=== PATIENT | male | born 1950 | race Caucasian/White ===

== ENCOUNTER → 2019-06-23 14:30 | Outpatient (CLI) | payer MEDICARE, SELFPAY ==
--- NOTE | 2019-06-23 | ECG_ITS ---
APPROVED REPORT Exam: Resting ECG HR:57 bpm ECG Measurements Heart Rate 57 AXES AR 146 P 79 QRSd 82 QRS 24 QT 434 T 30 QTc 422 <Conclusion> Sinus bradycardia late r wave progression Abnormal ECG Electronically signed by : Nabil Gibbs, 06/24/2019 17:55:24
[2019-06-23 14:36] LABS: Microscopic, Urine URINE MICROSCOPIC (MICROSCOPIC)
[2019-06-23 14:58] LABS: Appearance,Urine CLEAR (Clear); Bilirubin,Urine Negative (Negative); Blood, Urine Negative (Negative); Color,Urine YELLOW (Yellow); Glucose,Urine (UA) Negative (Negative); Ketones,Urine Negative (Negative); Leukocyte Esterase,Urine Negative (Negative); Nitrate,Urine Negative (Negative); Protein,Urine Negative (Negative); Specific Gravity, Urine >= 1.030 (1.005-1.030); Urobilinogen,Urine 0.2 EU/dl (0.2)
[2019-06-23 14:59] LABS: Basophils % 0.5 % (0.1-2.0); Eosinophils # 0.2 K/mm3 (0.0-0.4); Eosinophils % 2.3 % (0.1-12.0); Hematocrit 44.7 % (42.0-52.0); Hemoglobin 15.3 g/dL (14.1-18.0); Lymphocytes # 1.9 K/mm3 (0.7-4.5); Mean Corpuscular HGB Conc 34.2 g/dL (31.8-35.4); Mean Corpuscular Hemoglobin 30.9 pg (27.0-31.2); Mean Corpuscular Volume 90.5 fl (80-94); Mean Platelet Volume 10.1 fl (7.4-10.4); Monocytes # 0.5 K/mm3 (0.1-1.0); Monocytes % 6.7 % (1.7-9.3); Neutrophils # 4.2 K/mm3 (1.8-7.8); Neutrophils % 62.5 % (37.0-80.0); Platelet Count 167 K/mm3 (142-424); Red Blood Count 4.94 M/mm3 (4.60-6.20); Red Cell Distribution Width 13.2 % (11.5-17.5); White Blood Count 6.7 K/mm3 (4.8-10.8)
[2019-06-23 15:24] LABS: WBC,Urine Occasional #/hpf (0-3)
[2019-06-23 15:28] LABS: Hemoglobin A1C 5.7 % (4.0-6.0)
[2019-06-23 16:25] LABS: Alanine Aminotransferase 17 U/L (12-78); Albumin Level 4.2 g/dl (3.5-5.0); Albumin/Globulin Ratio 1.8 (1.1-1.8); Alkaline Phosphatase 54 U/L (38-126); Anion Gap 9.9 mEq/L (5-15); Aspartate Amino Transferase 25 U/L (17-59); Bilirubin,Total 0.6 mg/dl (0.2-1.3); Blood Urea Nitrogen 22 mg/dl (9-20); Calcium 9.9 mg/dl (8.4-10.2); Carbon Dioxide 28 mmol/L (22.0-30.0); Chloride 103 mmol/L (98-107); Chol/HDL Ratio 4.5 (1-3.5); Cholesterol 224 mg/dl (140-200); Estimated Glomerular Filt Rate 111 ml/min (>60); GFR (African American) 135 ML/MIN (>60); Globulin 2.4 g/dL (1.3-3.2); Glucose 88 mg/dl (74-100); HDL Cholesterol 50 mg/dl (40-60); Potassium 4.9 mmoL/L (3.5-5.1); Sodium 136 mmol/L (136-145); Total Protein,Serum 6.6 g/dl (6.3-8.2); Triglycerides 140 mg/dl (30-150); Uric Acid 4.6 mg/dl (3.5-8.5); VLDL Cholesterol 28 mg/dL (0-40)
[2019-06-23 16:36] LABS: Direct LDL Cholesterol 167.19 mg/dL (100-129)
[2019-06-23 16:55] LABS: Thyroid Stimulating Hormone 3.28 uIU/mL (0.465-4.68)
== END ==
PROVIDERS: Visit Provider Family Medicine
DX: R07.9 Chest pain, unspecified (principal); R73.01 Impaired fasting glucose; E78.00 Pure hypercholesterolemia, unspecified; I10 Essential (primary) hypertension
CPT/HCPCS: 36415; 80053; 80061; 81001; 83036; 84443; 84550; 85025; 93005

== ENCOUNTER → 2019-06-29 09:45 | Outpatient (CLI) | payer MEDICARE, SELFPAY ==
--- NOTE | 2019-06-29 09:30 | CA_ITS ---
APPROVED REPORT Exam: Exercise Treadmill Technologist: Paula Rosas, Ht: 5 ft 7 in Wt: 165 lbs BSA: 1.86 m2 Indications: CP Medical History Medical History: HTN, Hyperlipidemia Cardiac Risk Factors: HTN, Hyperlipidemia, FHX of CAD Stress Test Details Test: Rohit HR Resting HR: 69 bpm Max Heart Rate (APMHR): 150 bpm Max HR Achieved: 127 bpm Target HR (85% APMHR): 127 bpm % of APMHR: 84 BP Resting BP: 140/74 mmHg Max BP: 206/80 mmHg ECG Clinical Exercise duration: 07:41 min Highest Stage Achieved: Exercise capacity: 10.1 METs Stress ECG Conclusion Markedly agn GXT ischemic EKG changes with CP with exercise, GXT only no imaging. Abnormal exercise treadmill stress test. Test Summary RECOVERY 09:00 0.0 0.0 80 . 152/ 92 . . REST 03:51 0.0 0.0 69 . 140/ 74 . . Stage 1 01:00 10.0 1.7 0 . . . . Stage 1 02:00 10.0 1.7 90 . . . . Stage 1 03:00 10.0 1.7 91 . 166/ 70 . . Stage 2 01:00 12.0 2.5 104 . . . . Stage 2 02:00 12.0 2.5 105 . . . . Stage 2 03:00 12.0 2.5 106 . . . . Stage 3 01:00 14.0 3.4 120 . . . . Stage 3 01:41 14.0 3.4 123 . . . Stop exercise at 07:41 RECOVERY 01:00 0.0 0.0 99 . . . . RECOVERY 02:00 0.0 0.0 80 . 200/ 80 . . RECOVERY 03:00 0.0 0.0 79 . 206/ 80 . . RECOVERY 04:00 0.0 0.0 74 . 206/ 80 . . RECOVERY 05:00 0.0 0.0 73 . 151/ 81 . . RECOVERY 06:00 0.0 0.0 70 . 156/ 80 . . RECOVERY 07:00 0.0 0.0 76 . 156/ 80 . . RECOVERY 08:00 0.0 0.0 77 . 152/ 92 . . RECOVERY 09:00 0.0 0.0 80 . 152/ 92 . . RECOVERY 10:00 0.0 0.0 79 . 152/ 92 . . RECOVERY 11:00 0.0 0.0 74 . 152/ 92 . . RECOVERY 11:27 0.0 0.0 75 . 152/ 92 . . Electronically signed by : Ramirez Huertas, 06/29/2019 15:37:08
--- NOTE | 2019-06-29 12:22 | CA_ITS ---
APPROVED REPORT EXAM: Comprehensive 2D, Doppler, and color-flow Echocardiogram Print Producer: Antoinette Daly RDCS Ht: 5 ft 8 in Wt: 164lbs BSA: 1.88 BP: 153/79 mmHg Indications: ABN GXT,SOA,CP,HTN 2D Dimensions LVOT 1.89 cm (M/F) 1.5-2.5 M-Mode Dimensions RVDd 2.65 cm (0.9-2.6) LVDd 5.01 cm (3.5-5.7) LVDs 3.33 cm (3.5-5.7) IVSd 1.04 cm (0.6-1.1) PWd 1.00 cm (0.6-1.1) EF (Teich) 62.00% FS 33.50% EDV (Teich) 118.80 mL ESV (Teich) 45.10 mL LV Diastology E/A Ratio 0.68 Mitral Valve MV A Velocity 70.00 (40-130 cm/s) Left Ventricle Left atrium is mildly enlarged, left ventricle is normal size, mild concentric left ventricular hypertrophy, visually estimated ejection fraction 55% with mild inferior basal wall hypokinesis. Grade 1 diastolic dysfunction seen without tissue Doppler evidence of raise left atrial pressure. Right Ventricle Right atrium and right ventricular normal size and contractility. Aortic Valve Aortic valve is thickened and calcified leaflet continue to display good mobility, there is no aortic stenosis or aortic insufficiency. Mitral Valve Mitral valve is grossly normal, there is mild mitral regurgitation. Tricuspid Valve Tricuspid valve is grossly normal, there is mild tricuspid regurgitation, calculated right ventricular systolic pressure is 48 mmHg which is moderately elevated. Pulmonic Valve Pulmonic valve is poorly visualized. Great Vessels Aortic root is normal size. Pericardium No significant pericardial effusion noted. Conclusion 1. Mildly enlarged left atrium, normal left ventricular size, mild concentric left ventricular hypertrophy, visually estimated ejection fraction 55% with no regional wall motion abnormality, grade 1 diastolic dysfunction seen without tissue Doppler evidence of raise left atrial pressure. 2. Mild mitral and tricuspid regurgitation, calculated right ventricular systolic pressure is 48 mmHg, inferior vena cava is normal size with normal inspiratory collapse 3. No significant pericardial effusion noted. Electronically signed by : Ramirez Huertas, 06/30/2019 11:38:50
== END ==
PROVIDERS: PCP Family Medicine; Visit Provider Internal Medicine
DX: R06.00 Dyspnea, unspecified (principal); R07.9 Chest pain, unspecified; R94.39 Abnormal result of other cardiovascular function study; I10 Essential (primary) hypertension; Z72.0 Tobacco use
CPT/HCPCS: 93017; 93306

== ENCOUNTER 2019-12-05 22:05 | Inpatient (IN) | payer MEDICARE, SELFPAY ==
[2019-12-05 22:30] VITALS: BP 92/61; PULSE 74; RESP 17; O2SAT 98
[2019-12-05 22:44] VITALS: BP 101/64; PULSE 73; RESP 15; TEMP 36.6; O2SAT 98; BMI 25.0
[2019-12-05 22:47] LABS: POC Glucose,Bedside 143 (70-110)
--- NOTE | 2019-12-05 22:56 | ECG_ITS ---
APPROVED REPORT Exam: Resting ECG HR:69 bpm ECG Measurements Heart Rate 69 AXES LA 128 P 14 QRSd 90 QRS -6 QT 392 T 87 QTc 420 <Conclusion> Normal sinus rhythm Nonspecific ST and T wave abnormality Abnormal ECG Electronically signed by : Meek Webster, 12/06/2019 11:57:28
--- NOTE | 2019-12-05 22:56 | XR_ITS ---
PROCEDURE: XR CHEST 2V CLINICAL HISTORY: SOB Shortness of breath, heart disease COMPARISON: No exams were available for comparison FINDINGS: Prior median sternotomy. Normal heart size. No mediastinal or hilar mass apparent. The lungs are clear without infiltrates, suspicious nodules, or pleural effusions. There are degenerative changes of the thoracic spine. IMPRESSION: No acute findings. Dictated by: Amaury Mayorga MD 12/06/2019 06:40 Amaury Mayorga MD in [place] 12/06/2019 06:40
[2019-12-05 23:00] VITALS: BP 104/70; PULSE 75; RESP 17; O2SAT 98
--- NOTE | 2019-12-05 23:00 | HMH.EDGENADL ---
ED Disposition Clinical Impression: MAURILIO (acute kidney injury) Disposition: Admitted As Inpatient Condition on Discharge: Fair - Critical Care Critical Care Time: No Attestation: On 12/05/19, the high probability of a clinically significant, sudden or life threatening deterioration of the following system(s) required my full and direct attention, intervention and personal management. The time I documented below is in addition to time spent performing reported procedures but includes the following listed in this critical care notation. Medical Decision Making - Rogelio Inquiry Pt receiving controlled substance: No Vital Signs: 12/05/19 22:30 12/05/19 22:44 12/05/19 23:00 Temperature 97.9 F Temperature Source Oral Pulse Rate [Right] 74 73 75 Respiratory Rate 17 15 17 Blood Pressure [Left Arm] 92/61 L 101/64 L 104/70 L Blood Pressure Mean [Left Arm] 71 76 81 Blood Pressure Source [Left Arm] Automatic Cuff Automatic Cuff Automatic Cuff Blood Pressure Position [Left Arm] Supine Supine Supine 02 Sat by Pulse Oximetry 98 98 98 Oxygen Delivery Method Room Air Room Air Room Air 12/05/19 23:30 12/06/19 00:00 Temperature Temperature Source Pulse Rate [Right] 74 68 Respiratory Rate 18 17 Blood Pressure [Left Arm] 102/71 L 135/76 Blood Pressure Mean [Left Arm] 81 95 Blood Pressure Source [Left Arm] Automatic Cuff Automatic Cuff Blood Pressure Position [Left Arm] Supine Supine 02 Sat by Pulse Oximetry 99 100 Oxygen Delivery Method Room Air Room Air - Lab Data Lab Results 12/05/19 20:53: WBC 11.6 H, RBC 5.03, Hgb 15.7, Hct 44.0, MCV 87.4, MCH 31.2, MCHC 35.6 H, RDW 14.5, Plt Count 282, MPV 9.8, Neut % (Auto) 75.6, Lymph % (Auto) 15.8, [place] % (Auto) 8.0, Eos % (Auto) 0.3, Baso % (Auto) 0.2, Neut # (Auto) 8.8 H, Lymph # (Auto) 1.8, [place] # (Auto) 0.9, Eos # (Auto) 0.0, Baso # (Auto) 0.0 12/05/19 20:53: Sodium 134 L, Potassium 3.8, Chloride 104, Carbon Dioxide 12 L, Anion Gap 21.8 H, BUN 114 H*, Creatinine 3.20 H, Estimated Creat Clear 23, Estimated GFR 19 L*, Est GFR ( Amer) 23 L, Glucose 153 H, Calcium 9.0, Total Bilirubin 1.4 H, AST 23, ALT 13, Alkaline Phosphatase 61, Troponin I < 0.01, Total Protein 6.7, Albumin 3.8, Globulin 2.9, Albumin/Globulin Ratio 1.3 12/05/19 22:26: POC Glucose 143 H Result diagrams: 12/05/19 20:53 12/05/19 20:53 Orders (Tests/Meds): ED MEDICATIONS Generic Name Dose Route Start Last Admin Trade Name Freq PRN Reason Stop Dose Admin Lactated Ringer's 1,000 mls @ 999 mls/hr 12/05/19 23:00 12/05/19 23:10 Lactated Ringer's 1000 Ml Bag IV 12/06/19 00:00 999 mls/hr .Q1H1M ARIC Administration ORDERS Category Date Time Status XR chest 2V Stat Exams 12/05/19 22:56 Taken Covid-19 IgG/IgM (HM) Stat Lab 12/05/19 22:34 Received Troponin I Q3H Lab 12/06/19 02:00 Ordered Troponin I Q3H Lab 12/06/19 05:00 Ordered Troponin I Stat Lab 12/05/19 06:34 Ordered ECG Request by /Angie Stat Y 12/05/19 22:56 Ordered Medical Decision Narrative: 69-year-old male who comes in for evaluation of possible syncopal episode along with concern for hypoglycemia. Fingerstick blood glucose of 135 on arrival. Hemodynamically stable, but borderline hypotensive on arrival with systolic of around 105. Awake alert and oriented x4. Differential diagnosis includes but is not limited to viral gastroenteritis, C. difficile, bacterial gastroenteritis, dehydration causing syncope, arrhythmia causing syncope, myocardial infarction. Labs obtained including CBC, CMP, troponin profile. Labs significant for MAURILIO with creatinine of 3.4 and elevated BUN of 114. Labs also showed hyponatremia with sodium of 134. Provided patient with bolus of lactated Ringer's. Troponins negative. EKG personally reviewed and negative for evidence of ST elevation, ST depression, or T wave maladies concerning for ACS. Admitted patient to internal medicine service for further treatment. General Adult HPI
[2019-12-05 23:05] LABS: Chloride 104 mmol/L (98-107)
[2019-12-05 23:06] LABS: Potassium 3.8 mmoL/L (3.5-5.1); Sodium 134 mmol/L (136-145)
[2019-12-05 23:08] LABS: Alanine Aminotransferase 13 U/L (12-78); Aspartate Amino Transferase 23 U/L (17-59); Creatinine Clearance Estimated 23 mL/min (50-200); Estimated Glomerular Filt Rate 19 ml/min (>60); GFR (African American) 23 ML/MIN (>60)
[2019-12-05 23:09] LABS: Albumin Level 3.8 g/dl (3.5-5.0); Albumin/Globulin Ratio 1.3 (1.1-1.8); Alkaline Phosphatase 61 U/L (38-126); Anion Gap 21.8 mEq/L (5-15); Bilirubin,Total 1.4 mg/dl (0.2-1.3); Carbon Dioxide 12 mmol/L (22.0-30.0); Globulin 2.9 g/dL (1.3-3.2); Glucose 153 mg/dl (74-100); Total Protein,Serum 6.7 g/dl (6.3-8.2)
[2019-12-05 23:13] LABS: Basophils % 0.2 % (0.1-2.0); Eosinophils % 0.3 % (0.1-12.0); Hemoglobin 15.7 g/dL (14.1-18.0); Lymphocytes # 1.8 K/mm3 (0.7-4.5); Lymphocytes % 15.8 % (10-50); Mean Corpuscular HGB Conc 35.6 g/dL (31.8-35.4); Mean Corpuscular Hemoglobin 31.2 pg (27.0-31.2); Mean Corpuscular Volume 87.4 fl (80-94); Mean Platelet Volume 9.8 fl (7.4-10.4); Monocytes # 0.9 K/mm3 (0.1-1.0); Neutrophils # 8.8 K/mm3 (1.8-7.8); Neutrophils % 75.6 % (37.0-80.0); Platelet Count 282 K/mm3 (142-424); Red Blood Count 5.03 M/mm3 (4.60-6.20); Red Cell Distribution Width 14.5 % (11.5-17.5); White Blood Count 11.6 K/mm3 (4.8-10.8)
[2019-12-05 23:23] LABS: Troponin I < 0.01 ng/ml (0.00-0.034)
[2019-12-05 23:30] VITALS: BP 102/71; PULSE 74; RESP 18; O2SAT 99
[2019-12-05 23:40] LABS: Blood Urea Nitrogen 114 mg/dl (9-20)
--- NOTE | 2019-12-05 23:48 | PC.NURSE ---
call out to dr. santana which is transportation job titles for dr. walker
--- NOTE | 2019-12-05 23:53 | PC.NURSE ---
Dr speaking to Dr Mckeon for Admission
[2019-12-06] VITALS (12 sets, daily range): BP systolic 94–147; BP diastolic 51–82; PULSE 68–110; RESP 16–19; TEMP 36.4–37.2; O2SAT 93–100; BMI 23.5; BMI 23.3
[2019-12-06 00:17] LABS: Coronavirus 19 IgG Antibody Negative (Negative); Coronavirus 19 IgM Antibody Negative (Negative)
--- NOTE | 2019-12-06 01:05 | PC.NURSE ---
patient up to floor via wheelchair per staff.
[2019-12-06 02:15] LABS: POC Glucose,Bedside 106 (70-110)
--- NOTE | 2019-12-06 04:38 | PC.NURSE ---
UPON ARRIVAL TO FLOOR PT IS A&OX3. PACKAGER HEAD EQUAL BILAT. LUNGS NOTED CLEAR T/O AUSCULTATION. TOLERATED RA WELL. ABDOMEN NOTED NONDISTENDED, ACTIVE BOWEL SOUNDS AUSCULTATED IN ALL QUADS, SOFT AND NONTENDER PER PALPATION. NO COMPLAINTS STATED. PLACED IN CONTACT ENTERIC ON ANTICIPATION OF OBTAINING STOOL SAMPLE, VERBAL EDUCATION PROVIDED IN PPE AND REASONING FOR PPE. NO STOOL NOTED SO FAR THIS SHIFT. SBA WITH AMBULATION TO AND FROM BATHROOM THIS SHIFT, NOTIFIES STAFF APPROPRIATELY. VSS. WILL CONTINUE TO MONITOR.
[2019-12-06 05:10] LABS: Adenovirus F 40/41, stool Not Detected (NotDetected); Astrovirus Not Detected (NotDetected); Campylobacter Not Detected (NotDetected); Clostridium Difficile A/B, PCR Not Detected (NotDetected); Cyclospora Cayetanesis Not Detected (NotDetected); Entamoeba histolytica Not Detected (NotDetected); Enteroaggregative E coli Not Detected (NotDetected); Enteropathogenic E coli Not Detected (NotDetected); Enterotoxigenic E coli Not Detected (NotDetected); Giardia lamblia Not Detected (NotDetected); Norovirus Not Detected (NotDetected); Plesimonas Shigalloides, PCR Not Detected (NotDetected); Rotavirus A Not Detected (NotDetected); Salmonella, PCR Not Detected (NotDetected); Sapovirus Not Detected (NotDetected); Shiga-like toxin E coli Not Detected (NotDetected); Shigella Enterovasive E coli Not Detected (NotDetected); Vibrio Cholerae Not Detected (NotDetected); Vibrio, PCR Not Detected (NotDetected); Yersinia Entercolitica, PCR Not Detected (NotDetected)
[2019-12-06 05:41] LABS: POC Glucose,Bedside 111 (70-110)
[2019-12-06 07:08] LABS: Cryptosporidium Detected (NotDetected)
[2019-12-06 07:19] LABS: Basophils % 0.3 % (0.1-2.0); Eosinophils % 0.4 % (0.1-12.0); Hematocrit 41.2 % (42.0-52.0); Hemoglobin 14.7 g/dL (14.1-18.0); Lymphocytes # 1.6 K/mm3 (0.7-4.5); Mean Corpuscular HGB Conc 35.8 g/dL (31.8-35.4); Mean Corpuscular Hemoglobin 31.6 pg (27.0-31.2); Mean Corpuscular Volume 88.3 fl (80-94); Monocytes % 9.3 % (1.7-9.3); Neutrophils # 8.2 K/mm3 (1.8-7.8); Neutrophils % 74.9 % (37.0-80.0); Platelet Count 225 K/mm3 (142-424); Red Blood Count 4.66 M/mm3 (4.60-6.20); Red Cell Distribution Width 14.3 % (11.5-17.5); White Blood Count 10.9 K/mm3 (4.8-10.8)
[2019-12-06 07:25] LABS: Chloride 107 mmol/L (98-107); Potassium 3.3 mmoL/L (3.5-5.1); Sodium 135 mmol/L (136-145)
[2019-12-06 07:27] LABS: Creatinine Clearance Estimated 30 mL/min (50-200); Estimated Glomerular Filt Rate 28 ml/min (>60); GFR (African American) 34 ML/MIN (>60)
[2019-12-06 07:28] LABS: Alanine Aminotransferase 12 U/L (12-78); Albumin Level 3.4 g/dl (3.5-5.0); Albumin/Globulin Ratio 1.2 (1.1-1.8); Alkaline Phosphatase 58 U/L (38-126); Anion Gap 18.3 mEq/L (5-15); Aspartate Amino Transferase 22 U/L (17-59); Bilirubin,Total 1.5 mg/dl (0.2-1.3); Calcium 8.7 mg/dl (8.4-10.2); Carbon Dioxide 13 mmol/L (22.0-30.0); Globulin 2.8 g/dL (1.3-3.2); Glucose 120 mg/dl (74-100); Magnesium 2.2 mg/dl (1.6-2.3); Phosphorous 5.6 mg/dl (2.5-4.5); Total Protein,Serum 6.2 g/dl (6.3-8.2)
[2019-12-06 07:33] LABS: Blood Urea Nitrogen 107 mg/dl (9-20)
--- NOTE | 2019-12-06 07:35 | HMH.PHAVTE ---
[facility] VTE Monitoring - Patient Demographics Admission date: 12/06/19 Report Date: 12/06/19 Time: 07:35 Allergies/Adverse Reactions: Patient Allergies No Known Allergies Allergy (Verified 12/06/19 02:33) Height: 1.73 m Weight: 70.335 kg Patient Problems: Current Active Problems MAURILIO (acute kidney injury) (Acute) - VTE Risk Labs: VTE Related Lab Results Hgb 14.7 g/dL (14.1-18.0) 12/06/19 06:49 Hct 41.2 % (42.0-52.0) L 12/06/19 06:49 Plt Count 225 K/mm3 (142-424) 12/06/19 06:49 BUN 107 mg/dl (9-20) H* 12/06/19 06:49 Creatinine 2.30 mg/dl (0.66-1.25) H D 12/06/19 06:49 Estimated Creat Clear 30 mL/min (50-200) 12/06/19 06:49 Was VTE Risk Assessment Performed: Yes VTE Score: 1 VTE Risk Level: Very Low Risk Clinical Trial Participant: No - Prophylaxis VTE Prophylaxis Ordered?: Yes Types of VTE Prophylaxis: TEDS Knee High
--- NOTE | 2019-12-06 07:37 | HMH.PHAINT ---
home medication reconciliation completed using list from home pharmacy
--- NOTE | 2019-12-06 08:52 | HMH.ACPN2 ---
Internal Medicine - PN: Subj *Date: 12/06/19 *Time: 08:52 Interval history: Mr. Briceno is a 69-year-old male with a history of hypertension, hyperlipidemia, hiatal hernia, sleep apnea, and recent triple bypass at June 30, 2019 who presented to [facility] after experiencing a brief syncopal episode at home. History is obtained from both patient and his . Apparently he has been sick for about a week with frequent diarrhea and intermittent nausea and vomiting. He has not been eating very well and is been trying to retain fluids. Apparently he had a syncopal episode during the week and then another one which was witnessed by his last evening. He states he was only out maybe for a second. There was no loss of bowel or bladder function. He does describe some dizziness. With the fall he did hit his head. His did check his blood sugar and it read too low. EMS checked it and it was 140. Patient denies chest pain, shortness of breath, and palpitations. He does have some abdominal cramping. He denies any hematochezia are melena or blood in his stool. He has had diminished urinary output. He is continued with his blood pressure medicine and diuretic throughout. To note his grandchildren visited last week and had significant diarrhea were diagnosed with a parasite. Patient arrived to his room about 4 AM. There for his head little sleep. He has had 1 diarrhea stool thus far which showed Cryptosporidium. Patient denies nausea and has not vomited in a few days. With work-up in the emergency room laboratory data revealed white blood cell count of 11,600 with a hemoglobin of 15.7 and hematocrit of 44 with improvement this morning to white blood cell count of 10,900. Blood chemistries revealed a low sodium of 134; potassium was 3.8, BUN 114 and creatinine 19 with improvement this morning with BUN of 107 and creatinine of 2.3. Liver function studies were all normal. Chest x-ray showed no acute changes. Patient was admitted for further evaluation and treatment with IV fluids. Exam Vital signs and Labs for Last 24 Hours: Temp Pulse Resp BP Pulse Ox 97.6 F 76 19 109/65 L 100 12/06/19 08:00 12/06/19 08:00 12/06/19 08:00 12/06/19 08:00 12/06/19 08:00 Laboratory Results - last 24 hr 12/05/19 20:53: WBC 11.6 H, RBC 5.03, Hgb 15.7, Hct 44.0, MCV 87.4, MCH 31.2, MCHC 35.6 H, RDW 14.5, Plt Count 282, MPV 9.8, Neut % (Auto) 75.6, Lymph % (Auto) 15.8, [place] % (Auto) 8.0, Eos % (Auto) 0.3, Baso % (Auto) 0.2, Neut # (Auto) 8.8 H, Lymph # (Auto) 1.8, [place] # (Auto) 0.9, Eos # (Auto) 0.0, Baso # (Auto) 0.0 12/05/19 20:53: Sodium 134 L, Potassium 3.8, Chloride 104, Carbon Dioxide 12 L, Anion Gap 21.8 H, BUN 114 H*, Creatinine 3.20 H, Estimated Creat Clear 23, Estimated GFR 19 L*, Est GFR ( Amer) 23 L, Glucose 153 H, Calcium 9.0, Total Bilirubin 1.4 H, AST 23, ALT 13, Alkaline Phosphatase 61, Troponin I < 0.01, Total Protein 6.7, Albumin 3.8, Globulin 2.9, Albumin/Globulin Ratio 1.3 12/05/19 22:26: POC Glucose 143 H 12/05/19 22:34: SARS-CoV-2 IgG Ab (Rapid) Negative, SARS-CoV-2 IgM Ab (Rapid) Negative 12/06/19 01:49: POC Glucose 106 12/06/19 05:00: Stl Aeromonas (PCR) Not detected, Stl C. cayetanensis PCR Not detected, Stool Rotavirus (PCR) Not detected, Stl Adenov F 40/41 PCR Not detected, Stool Astrovirus (PCR) Not detected, Stool Campylobacter PCR Not detected, Stl C.difficile Tox PCR Not detected, Stool Cryptosporidium PCR Detected A, Stl E.coli Shiga Tox PCR Not detected, Stool E coli O157 PCR Not detected, Stl Enterotoxigenic E PCR Not detected, Stool EPEC (PCR) Not detected, Stool EAEC (PCR) Not detected, Stl E. histolytica PCR Not detected, Stool Giardia Lamblia PCR Not detected, Stool Salmonella PCR Not detected, Stool Sapovirus (PCR) Not detected, Stl P. shigelloides PCR Not detected, Stl Shigella/EIEC PCR Not detected, St Y.enterocolitica PCR Not detected, Stool Vibrio (PCR) Not detected, Stl Vibrio chol
--- NOTE | 2019-12-06 09:02 | HMH.HP ---
*Admission Date: 12/06/19 <Gina Gonzalez - 12/06/19 09:02> *Chief complaint: Diarrhea <Gina Gonzalez - 12/06/19 09:12> *History of present illness: Mr. Briceno is a 69-year-old male with a history of hypertension, hyperlipidemia, hiatal hernia, sleep apnea, and recent triple bypass at June 30, 2019 who presented to [facility] after experiencing a brief syncopal episode at home. History is obtained from both patient and his . Apparently he has been sick for about a week with frequent diarrhea and intermittent nausea and vomiting. He has not been eating very well and is been trying to retain fluids. Apparently he had a syncopal episode during the week and then another one which was witnessed by his last evening. He states he was only out maybe for a second. There was no loss of bowel or bladder function. He does describe some dizziness. With the fall he did hit his head. His did check his blood sugar and it read too low. EMS checked it and it was 140. Patient denies chest pain, shortness of breath, and palpitations. He does have some abdominal cramping. He denies any hematochezia are melena or blood in his stool. He has had diminished urinary output. He is continued with his blood pressure medicine and diuretic throughout. To note his grandchildren visited last week and had significant diarrhea were diagnosed with a parasite. Patient arrived to his room about 4 AM. There for his head little sleep. He has had 1 diarrhea stool thus far which showed Cryptosporidium. Patient denies nausea and has not vomited in a few days. With work-up in the emergency room laboratory data revealed white blood cell count of 11,600 with a hemoglobin of 15.7 and hematocrit of 44 with improvement this morning to white blood cell count of 10,900. Blood chemistries revealed a low sodium of 134; potassium was 3.8, BUN 114 and creatinine 19 with improvement this morning with BUN of 107 and creatinine of 2.3. Liver function studies were all normal. Chest x-ray showed no acute changes. Patient was admitted for further evaluation and treatment with IV fluids. <Gina Gonzalez - 12/06/19 09:02> [facility] History Medical History: Reports:: Coronary Artery Disease <Son Montoya - 12/06/19 12:10> Reports:: Hepatitis, Hyperlipidemia, Hypertension Denies:: Cancer, Diabetes Mellitus Type 1, Diabetes Mellitus Type 2, Internal Pacemaker, MRSA <Gina Gonzalez 12/06/19 09:02> *Have you ever received a pneumonia vaccine?: No <Gina Gonzalez 12/06/19 09:02> *Have you received a flu vaccine this season?: No <Gina Gonzalez 12/06/19 09:02> Other Surgeries: Yes: CABG (3 vessels) <Son Montoya 12/06/19 12:10> No: Pacemaker <Gina Gonzalez 12/06/19 09:02> Amputation: No <Gina Gonzalez 12/06/19 09:02> Fractures: No <Gina Gonzalez 12/06/19 09:02> - *Social History Last grade of school completed: Advanced degree <Gina Gonzalez 12/06/19 09:02> Smoking Status: Never smoker <Gina Gonzalez 12/06/19 09:02> Tobacco Type: smokeless tobacco <Gina Gonzalez 12/06/19 09:02> # Packs/Day (cigarettes): 0 <Gina Gonzalez 12/06/19 09:02> Alcohol Intake: never <Gina Gonzalez 12/06/19 09:02> Alcohol Intake Frequency:: holidays/special occasions only <Gina Gonzalez 12/06/19 09:02> *Occupational Status:: employed <Gina Gonzalez 12/06/19 09:02> Housing: house <Gina Gonzalez 12/06/19 09:02> Household Members: significant other <Gina Gonzalez 12/06/19 09:02> *Travel in the last 8 weeks: None <Gina Gonzalez 12/06/19 09:02> Family Hx:: Bleeding Disorder, Cancer, Heart Attack, Hyperlipidemia, Hypertension <Gina Gonzalez 12/06/19 09:02> Review of Systems - Constitutional Reports lack of energy, Reports weakness, Denies body ache(s), Denies chills, Denies fever(s), Denies night sweats <Gina Gonzalez 12/06/19 09:12> - Eyes Denies change i
--- NOTE | 2019-12-06 10:40 | PC.NURSE ---
Called and spoke with Dr. Montoya and made him aware that pt has continued to have diarrhea. Also, he is aware of the notification result of bun 107.
[2019-12-06 11:59] LABS: POC Glucose,Bedside 117 (70-110)
[2019-12-06 16:13] LABS: POC Glucose,Bedside 108 (70-110)
--- NOTE | 2019-12-06 19:18 | PC.NURSE ---
report given to fanta
--- NOTE | 2019-12-06 19:43 | PC.NURSE ---
Pt alert and oriented and able to make needs known. NAD, No c/o this shift. IVFs infusing. CB in reach. at bedside. No acute changes. VSS
[2019-12-06 20:23] LABS: POC Glucose,Bedside 151 (70-110)
[2019-12-07] VITALS (7 sets, daily range): BP systolic 115–141; BP diastolic 68–88; PULSE 56–110; RESP 14–20; TEMP 36.5–36.8; O2SAT 97–100; BMI 23.1
--- NOTE | 2019-12-07 03:31 | PC.NURSE ---
A&OX4. PT TOLERATING RA WELL THIS SHIFT. PT AT BEDSIDE. PT HAS HAD NO C/O NA/VO/ OR DIARRHEA T/O SHIFT THUS FAR. PT HAS HAD GOOD PO INTAKE, ALONG WITH IV FLUIDS. PT REMAINS IN CONTACT ENTERIC PRECAUTIONS. PT UP INDEPENDENTLY IN ROOM. PT HAS RESTED WELL T/O MAJORITY OF SHIFT. VSS WILL CONTINUE TO MONITOR.
[2019-12-07 05:40] LABS: POC Glucose,Bedside 110 (70-110)
[2019-12-07 06:58] LABS: Basophils % 0.4 % (0.1-2.0); Eosinophils # 0.1 K/mm3 (0.0-0.4); Eosinophils % 0.7 % (0.1-12.0); Hematocrit 41.3 % (42.0-52.0); Hemoglobin 14.5 g/dL (14.1-18.0); Lymphocytes # 1.6 K/mm3 (0.7-4.5); Lymphocytes % 17.8 % (10-50); Mean Corpuscular Hemoglobin 31.1 pg (27.0-31.2); Mean Platelet Volume 8.9 fl (7.4-10.4); Monocytes # 0.8 K/mm3 (0.1-1.0); Monocytes % 9.4 % (1.7-9.3); Neutrophils # 6.4 K/mm3 (1.8-7.8); Neutrophils % 71.7 % (37.0-80.0); Platelet Count 207 K/mm3 (142-424); Red Blood Count 4.64 M/mm3 (4.60-6.20); Red Cell Distribution Width 14.1 % (11.5-17.5); White Blood Count 8.9 K/mm3 (4.8-10.8)
[2019-12-07 07:13] LABS: Chloride 117 mmol/L (98-107)
[2019-12-07 07:14] LABS: Potassium 3.7 mmoL/L (3.5-5.1); Sodium 141 mmol/L (136-145)
[2019-12-07 07:17] LABS: Anion Gap 13.7 mEq/L (5-15); Blood Urea Nitrogen 66 mg/dl (9-20); Calcium 8.4 mg/dl (8.4-10.2); Carbon Dioxide 14 mmol/L (22.0-30.0); Creatinine Clearance Estimated 67 mL/min (50-200); Estimated Glomerular Filt Rate 74 ml/min (>60); GFR (African American) 89 ML/MIN (>60); Glucose 124 mg/dl (74-100)
--- NOTE | 2019-12-07 08:31 | HMH.ACPN2 ---
<Melissa Rodriguez - Last Filed: 12/07/19 08:31> Internal Medicine - PN: Subj *Date: 12/07/19 *Time: 08:31 Interval history: Patient states he does feel a little bit better today. His abdominal pain has improved and his diarrhea is slowing. He is resting better. Exam Vital signs and Labs for Last 24 Hours: Temp Pulse Resp BP Pulse Ox 97.9 F 89 16 123/69 98 12/07/19 04:00 12/07/19 04:00 12/07/19 04:00 12/07/19 04:00 12/07/19 04:00 Laboratory Results - last 24 hr 12/06/19 11:33: POC Glucose 117 H 12/06/19 15:49: POC Glucose 108 12/06/19 20:04: POC Glucose 151 H 12/07/19 05:29: POC Glucose 110 12/07/19 06:40: WBC 8.9, RBC 4.64, Hgb 14.5, Hct 41.3 L, MCV 89.0, MCH 31.1, MCHC 35.0, RDW 14.1, Plt Count 207, MPV 8.9, Neut % (Auto) 71.7, Lymph % (Auto) 17.8, [place] % (Auto) 9.4 H, Eos % (Auto) 0.7, Baso % (Auto) 0.4, Neut # (Auto) 6.4, Lymph # (Auto) 1.6, [place] # (Auto) 0.8, Eos # (Auto) 0.1, Baso # (Auto) 0.0 12/07/19 06:40: Sodium 141, Potassium 3.7, Chloride 117 H, Carbon Dioxide 14 L, Anion Gap 13.7, BUN 66 H D, Creatinine 1.00 D, Estimated Creat Clear 67, Estimated GFR 74, Est GFR ( Amer) 89 D, Glucose 124 H, Calcium 8.4 I & O for Last 24 hours: Intake & Output 12/04/19 12/05/19 12/06/19 12/07/19 11:59 11:59 11:59 11:59 Intake Total 1120 / 1120 1072 / 1072 Output Total 401 / 401 325 / 325 Balance 719 / 719 747 / 747 Weight 155 lb 1 oz 153 lb - Constitutional no acute distress - *Routine Respiratory Exam Present: CTA bilaterally - *Routine Cardiovascular Exam Present: RRR - *Routine Abdominal Exam Present: soft, normoactive bowel sounds, tenderness (diffuse) - *Routine Extremities Exam Absent: cyanosis, clubbing, edema - *Routine Skin Exam Present: warm. Absent: rash - *Routine Neurological Exam Present: alert, oriented X3 Assessment and Plan (1) Diarrhea due to cryptosporidium Current visit: Yes Status: Acute Category: Medical Code(s): A07.2 - Cryptosporidiosis (2) MAURILIO (acute kidney injury) Current visit: Yes Status: Acute Category: Medical Code(s): N17.9 - Acute kidney failure, unspecified (3) CAD (coronary artery disease) Current visit: No Status: Chronic Qualifiers: Coronary Disease-Associated Artery/Lesion type: bypass graft [place] vs. transplanted heart: [place] heart Associated angina: without angina Qualified Code(s): I25.810 - Atherosclerosis of coronary artery bypass graft(s) without angina pectoris Category: Medical Code(s): I25.10 - Atherosclerotic heart disease of [place] coronary artery without angina pectoris - Assessment and plan all Dx Assessment and Plan for all problems:: Patient's white count has normalized and his renal function has improved. Will discuss further care with Dr. Montoya. <Son Montoya - Last Filed: 12/07/19 09:13> Internal Medicine - PN: Subj *Date: 12/07/19 *Time: 09:13 Exam Vital signs and Labs for Last 24 Hours: Temp Pulse Resp BP Pulse Ox 97.9 F 87 18 115/68 100 12/07/19 08:00 12/07/19 08:00 12/07/19 08:00 12/07/19 08:00 12/07/19 08:00 Laboratory Results - last 24 hr 12/06/19 11:33: POC Glucose 117 H 12/06/19 15:49: POC Glucose 108 12/06/19 20:04: POC Glucose 151 H 12/07/19 05:29: POC Glucose 110 12/07/19 06:40: WBC 8.9, RBC 4.64, Hgb 14.5, Hct 41.3 L, MCV 89.0, MCH 31.1, MCHC 35.0, RDW 14.1, Plt Count 207, MPV 8.9, Neut % (Auto) 71.7, Lymph % (Auto) 17.8, [place] % (Auto) 9.4 H, Eos % (Auto) 0.7, Baso % (Auto) 0.4, Neut # (Auto) 6.4, Lymph # (Auto) 1.6, [place] # (Auto) 0.8, Eos # (Auto) 0.1, Baso # (Auto) 0.0 12/07/19 06:40: Sodium 141, Potassium 3.7, Chloride 117 H, Carbon Dioxide 14 L, Anion Gap 13.7, BUN 66 H D, Creatinine 1.00 D, Estimated Creat Clear 67, Estimated GFR 74, Est GFR ( Amer) 89 D, Glucose 124 H, Calcium 8.4 I & O for Last 24 hours: Intake & Output 12/04/19 12/05/19 12/06/19 12/07/19 23:59 23:59 23:59 23:59 Intake [place]
--- NOTE | 2019-12-07 11:35 | PC.NURSE ---
spoke with dr. walker about patient bp meds. stated he did not want to restart them yet at this time. he will continue to monitor patient bp.
[2019-12-07 11:58] LABS: POC Glucose,Bedside 125 (70-110)
--- NOTE | 2019-12-07 16:35 | PC.NURSE ---
patient has done well this shift. some diarrhea still noted. has tolerated diet, and fluids well. has been up ambulating in room. at times heart rate noted to be irregular, on monitor does appear to show nsr with pacs at times. rings out as needed. concern over bp meds but educated patient we were monitoring his condition and md will order if they are needed. vitals stable will continue to monitor.
--- NOTE | 2019-12-07 16:53 | PC.NURSE ---
also to note some swelling is noted on l side in leg and arm. OR did state she laid on l side during surgery but it has gone down some since return from surgery
[2019-12-07 16:57] LABS: POC Glucose,Bedside 108 (70-110)
[2019-12-07 21:19] LABS: POC Glucose,Bedside 132 (70-110)
[2019-12-08] VITALS (7 sets, daily range): BP systolic 128–155; BP diastolic 76–86; PULSE 65–110; RESP 16–22; TEMP 36.7–36.9; O2SAT 98–100; BMI 23.3
--- NOTE | 2019-12-08 05:18 | PC.NURSE ---
PT. HAS NOT C/O PAIN, N/V, OR SOA. REPORTS DIARRHEA DECREASING IN FREQUENCY. ONLY REPORTS SLIGHT ABD LLQ TENDERNESS. AT BEDSIDE.
[2019-12-08 05:41] LABS: POC Glucose,Bedside 109 (70-110)
[2019-12-08 07:28] LABS: Basophils % 0.4 % (0.1-2.0); Eosinophils # 0.1 K/mm3 (0.0-0.4); Eosinophils % 1.6 % (0.1-12.0); Hematocrit 38.5 % (42.0-52.0); Hemoglobin 13.5 g/dL (14.1-18.0); Lymphocytes % 14.6 % (10-50); Mean Corpuscular HGB Conc 35.1 g/dL (31.8-35.4); Mean Corpuscular Hemoglobin 31.4 pg (27.0-31.2); Mean Corpuscular Volume 89.4 fl (80-94); Mean Platelet Volume 8.7 fl (7.4-10.4); Monocytes # 0.7 K/mm3 (0.1-1.0); Monocytes % 9.8 % (1.7-9.3); Neutrophils # 5.1 K/mm3 (1.8-7.8); Neutrophils % 73.6 % (37.0-80.0); Platelet Count 191 K/mm3 (142-424); Red Blood Count 4.31 M/mm3 (4.60-6.20); Red Cell Distribution Width 14.1 % (11.5-17.5); White Blood Count 6.9 K/mm3 (4.8-10.8)
[2019-12-08 07:48] LABS: Chloride 116 mmol/L (98-107); Potassium 4.7 mmoL/L (3.5-5.1); Sodium 142 mmol/L (136-145)
[2019-12-08 07:51] LABS: Anion Gap 9.7 mEq/L (5-15); Blood Urea Nitrogen 37 mg/dl (9-20); Carbon Dioxide 21 mmol/L (22.0-30.0); Creatinine Clearance Estimated 68 mL/min (50-200); Estimated Glomerular Filt Rate 83 ml/min (>60); GFR (African American) 101 ML/MIN (>60)
[2019-12-08 07:52] LABS: Calcium 8.2 mg/dl (8.4-10.2); Glucose 115 mg/dl (74-100)
--- NOTE | 2019-12-08 08:24 | HMH.ACPN2 ---
<Melissa Rodriguez - Last Filed: 12/08/19 08:24> Internal Medicine - PN: Subj *Date: 12/08/19 *Time: 08:24 Interval history: Patient is feeling better this morning. He states he did not sleep well last night so he is fatigued. His diarrhea is improving as is his abdominal pain. He is able to tolerate a diet. Exam Vital signs and Labs for Last 24 Hours: Temp Pulse Resp BP Pulse Ox 98.4 F 65 16 128/86 98 12/08/19 04:00 12/08/19 04:00 12/08/19 04:00 12/08/19 04:00 12/08/19 04:00 Laboratory Results - last 24 hr 12/07/19 11:50: POC Glucose 125 H 12/07/19 16:47: POC Glucose 108 12/07/19 19:53: POC Glucose 132 H 12/08/19 05:10: POC Glucose 109 12/08/19 06:54: WBC 6.9, RBC 4.31 L, Hgb 13.5 L, Hct 38.5 L, MCV 89.4, MCH 31.4 H, MCHC 35.1, RDW 14.1, Plt Count 191, MPV 8.7, Neut % (Auto) 73.6, Lymph % (Auto) 14.6, [place] % (Auto) 9.8 H, Eos % (Auto) 1.6, Baso % (Auto) 0.4, Neut # (Auto) 5.1, Lymph # (Auto) 1.0, [place] # (Auto) 0.7, Eos # (Auto) 0.1, Baso # (Auto) 0.0 12/08/19 06:54: Sodium 142, Potassium 4.7 D, Chloride 116 H, Carbon Dioxide 21 L D, Anion Gap 9.7, BUN 37 H D, Creatinine 0.90, Estimated Creat Clear 68, Estimated GFR 83, Est GFR ( Amer) 101, Glucose 115 H, Calcium 8.2 L I & O for Last 24 hours: Intake & Output 12/05/19 12/06/19 12/07/19 12/08/19 11:59 11:59 11:59 11:59 Intake Total 1120 / 1120 1312 / 1312 2197 / 2197 Output Total 401 / 401 325 / 325 Balance 719 / 719 987 / 987 2197 / 2197 Weight 155 lb 1 oz 153 lb 154 lb 6 oz - Constitutional no acute distress - *Routine Respiratory Exam Present: CTA bilaterally - *Routine Cardiovascular Exam Present: RRR - *Routine Abdominal Exam Present: soft, normoactive bowel sounds. Absent: tenderness - *Routine Extremities Exam Absent: cyanosis, clubbing, edema - *Routine Skin Exam Present: warm. Absent: rash - *Routine Neurological Exam Present: alert, oriented X3 Assessment and Plan (1) Diarrhea due to cryptosporidium Current visit: Yes Status: Acute Category: Medical Code(s): A07.2 - Cryptosporidiosis (2) MAURILIO (acute kidney injury) Current visit: Yes Status: Acute Category: Medical Code(s): N17.9 - Acute kidney failure, unspecified (3) CAD (coronary artery disease) Current visit: No Status: Chronic Qualifiers: Coronary Disease-Associated Artery/Lesion type: bypass graft [place] vs. transplanted heart: [place] heart Associated angina: without angina Qualified Code(s): I25.810 - Atherosclerosis of coronary artery bypass graft(s) without angina pectoris Category: Medical Code(s): I25.10 - Atherosclerotic heart disease of [place] coronary artery without angina pectoris - Assessment and plan all Dx Assessment and Plan for all problems:: We will continue nitazoxanide. Will discuss further care with Dr. Montoya. <Son Montoya - Last Filed: 12/08/19 09:03> Internal Medicine - PN: Subj *Date: 12/08/19 *Time: 09:02 Interval history: Patient has not been able to tolerate food yet, only taking some clear liquids Exam Vital signs and Labs for Last 24 Hours: Temp Pulse Resp BP Pulse Ox 98.0 F 88 17 141/78 H 100 12/08/19 08:00 12/08/19 08:00 12/08/19 08:00 12/08/19 08:00 12/08/19 08:00 Laboratory Results - last 24 hr 12/07/19 11:50: POC Glucose 125 H 12/07/19 16:47: POC Glucose 108 12/07/19 19:53: POC Glucose 132 H 12/08/19 05:10: POC Glucose 109 12/08/19 06:54: WBC 6.9, RBC 4.31 L, Hgb 13.5 L, Hct 38.5 L, MCV 89.4, MCH 31.4 H, MCHC 35.1, RDW 14.1, Plt Count 191, MPV 8.7, Neut % (Auto) 73.6, Lymph % (Auto) 14.6, [place] % (Auto) 9.8 H, Eos % (Auto) 1.6, Baso % (Auto) 0.4, Neut # (Auto) 5.1, Lymph # (Auto) 1.0, [place] # (Auto) 0.7, Eos # (Auto) 0.1, Baso # (Auto) 0.0 12/08/19 06:54: Sodium 142, Potassium 4.7 D, Chloride 116 H, Carbon Dioxide 21 L D, Anion Gap 9.7, BUN 37 H D, Creatinine 0.90, Estimated Creat Clear 68, Estimated GFR 83, Est GFR ( Amer) 101, Gluco
[2019-12-08 11:47] LABS: POC Glucose,Bedside 103 (70-110)
[2019-12-08 17:01] LABS: POC Glucose,Bedside 120 (70-110)
--- NOTE | 2019-12-08 17:32 | PC.NURSE ---
pt reports bm's being less and more on the soft side than liquid. pt has ambulated in room w/o issue. vss. will cont. to monitor.
--- NOTE | 2019-12-08 17:54 | P.PN_ITS ---
Internal Medicine - PN: Subj *Date: 12/08/19 *Time: 17:54 Interval history: Patient feels a little better today. He was able to eat some cereal this morning and a milkshake for lunch. He did not receive nitazoxanide at all today. Exam Vital signs and Labs for Last 24 Hours: Temp Pulse Resp BP Pulse Ox 98.1 F 81 18 155/76 H 99 12/08/19 16:00 12/08/19 16:00 12/08/19 16:00 12/08/19 16:00 12/08/19 16:00 Laboratory Results - last 24 hr 12/07/19 19:53: POC Glucose 132 H 12/08/19 05:10: POC Glucose 109 12/08/19 06:54: WBC 6.9, RBC 4.31 L, Hgb 13.5 L, Hct 38.5 L, MCV 89.4, MCH 31.4 H, MCHC 35.1, RDW 14.1, Plt Count 191, MPV 8.7, Neut % (Auto) 73.6, Lymph % (Auto) 14.6, [place] % (Auto) 9.8 H, Eos % (Auto) 1.6, Baso % (Auto) 0.4, Neut # (Auto) 5.1, Lymph # (Auto) 1.0, [place] # (Auto) 0.7, Eos # (Auto) 0.1, Baso # (Auto) 0.0 12/08/19 06:54: Sodium 142, Potassium 4.7 D, Chloride 116 H, Carbon Dioxide 21 L D, Anion Gap 9.7, BUN 37 H D, Creatinine 0.90, Estimated Creat Clear 68, Estimated GFR 83, Est GFR ( Amer) 101, Glucose 115 H, Calcium 8.2 L 12/08/19 11:39: POC Glucose 103 12/08/19 16:54: POC Glucose 120 H I & O for Last 24 hours: Intake & Output 12/05/19 12/06/19 12/07/19 12/08/19 23:59 23:59 23:59 23:59 Intake Total 1240 / 1240 2439 / 2439 1190 / 1190 Output Total 401 / 626 325 / 325 Balance 839 / 614 2114 / 2114 1190 / 1190 Weight 165 lb 154 lb 5.177 oz 153 lb 154 lb 6 oz Assessment and Plan (1) Diarrhea due to cryptosporidium Current visit: Yes Status: Acute Category: Medical Code(s): A07.2 - Cryptosporidiosis (2) MAURILIO (acute kidney injury) Current visit: Yes Status: Acute Category: Medical Code(s): N17.9 - Acute kidney failure, unspecified (3) CAD (coronary artery disease) Current visit: No Status: Chronic Qualifiers: Coronary Disease-Associated Artery/Lesion type: bypass graft [place] vs. transplanted heart: [place] heart Associated angina: without angina Qualified Code(s): I25.810 - Atherosclerosis of coronary artery bypass graft(s) without angina pectoris Category: Medical Code(s): I25.10 - Atherosclerotic heart disease of [place] coronary artery without angina pectoris - Assessment and plan all Dx Assessment and Plan for all problems:: Plan to saline lock IVF now, instructed pharmacy to obtain nitazoxanide for patient as he still needs his 3 rd day of treatment. Hopefully they will be more successful tomorrow and patient will be able to be discharged home.
--- NOTE | 2019-12-08 19:08 | PC.NURSE ---
report given to thomas
[2019-12-08 20:59] LABS: POC Glucose,Bedside 99 (70-110)
[2019-12-09] VITALS: BP 120/78; PULSE 100; PULSE 86; RESP 16; TEMP 37.1; O2SAT 98
--- NOTE | 2019-12-09 03:41 | PC.NURSE ---
PT. HAS REPORTED SOFT BM'S THIS SHIFT. PT. HAS NOT C/O N/V OR PAIN THIS SHIFT. AT BEDSIDE.
[2019-12-09 04:00] VITALS: BP 148/75; PULSE 110; PULSE 90; RESP 20; TEMP 37; O2SAT 97
[2019-12-09 04:57] VITALS: BMI 23.8
[2019-12-09 05:43] LABS: POC Glucose,Bedside 93 (70-110)
[2019-12-09 07:23] VITALS: BP 138/82; PULSE 85; RESP 20; TEMP 36.7; O2SAT 97
[2019-12-09 08:00] VITALS: PULSE 85; RESP 20; O2SAT 97
--- NOTE | 2019-12-09 08:26 | HMH.ACPN2 ---
Internal Medicine - PN: Subj *Date: 12/09/19 *Time: 08:36 Interval history: He rested well through the night. No new complaints this morning. He is tolerating his diet. He reports that his stools have more formed. No abdominal pain. Exam Vital signs and Labs for Last 24 Hours: Temp Pulse Resp BP Pulse Ox 98.0 F 85 20 138/82 97 12/09/19 07:23 12/09/19 07:23 12/09/19 07:23 12/09/19 07:23 12/09/19 07:23 Laboratory Results - last 24 hr 12/08/19 11:39: POC Glucose 103 12/08/19 16:54: POC Glucose 120 H 12/08/19 20:35: POC Glucose 99 12/09/19 05:34: POC Glucose 93 I & O for Last 24 hours: Intake & Output 12/06/19 12/07/19 12/08/19 12/09/19 11:59 11:59 11:59 11:59 Intake Total 1120 / 1120 1312 / 1312 2437 / 2437 Output Total 401 / 401 325 / 325 Balance 719 / 719 987 / 987 2437 / 2437 Weight 155 lb 1 oz 153 lb 154 lb 6 oz 157 lb 8 oz Narrative: Sitting up in the chair. Appears in no distress. Vital signs are stable. Abdomen is soft and nondistended with no unusual tenderness. Assessment and Plan (1) Diarrhea due to cryptosporidium Current visit: Yes Status: Acute Category: Medical Code(s): A07.2 - Cryptosporidiosis (2) MAURILIO (acute kidney injury) Current visit: Yes Status: Acute Category: Medical Code(s): N17.9 - Acute kidney failure, unspecified (3) CAD (coronary artery disease) Current visit: No Status: Chronic Qualifiers: Coronary Disease-Associated Artery/Lesion type: bypass graft [place] vs. transplanted heart: [place] heart Associated angina: without angina Qualified Code(s): I25.810 - Atherosclerosis of coronary artery bypass graft(s) without angina pectoris Category: Medical Code(s): I25.10 - Atherosclerotic heart disease of [place] coronary artery without angina pectoris - Assessment and plan all Dx Assessment and Plan for all problems:: The plan is for him to be discharged today after he receives his dose of nitazoxanide. I spoke to the pharmacist this morning and they expect his medication to be delivered by 11 AM. He will receive his morning dose and then take the evening dose home with him at discharge.
--- NOTE | 2019-12-09 12:30 | HMH.PHAINT ---
DISCHARGE COUNSELING COMPLETED.
--- NOTE | 2019-12-12 13:58 | HMH.DCSUM ---
General - General Admission date:: 12/06/19 <David Mckeon - 12/13/19 08:46> 12/06/19 <Melissa Rodriguez - 12/12/19 14:03> Discharge date: 12/10/19 <Melissa Rodriguez - 12/12/19 14:03> HPI HPI: Mr. Briceno is a 69-year-old male with a history of hypertension, hyperlipidemia, hiatal hernia, sleep apnea, and recent triple bypass at June 30, 2019 who presented to [facility] after experiencing a brief syncopal episode at home. History is obtained from both patient and his . Apparently he has been sick for about a week with frequent diarrhea and intermittent nausea and vomiting. He has not been eating very well and is been trying to retain fluids. Apparently he had a syncopal episode during the week and then another one which was witnessed by his last evening. He states he was only out maybe for a second. There was no loss of bowel or bladder function. He does describe some dizziness. With the fall he did hit his head. His did check his blood sugar and it read too low. EMS checked it and it was 140. Patient denies chest pain, shortness of breath, and palpitations. He does have some abdominal cramping. He denies any hematochezia are melena or blood in his stool. He has had diminished urinary output. He is continued with his blood pressure medicine and diuretic throughout. To note his grandchildren visited last week and had significant diarrhea were diagnosed with a parasite. Patient arrived to his room about 4 AM. There for his head little sleep. He has had 1 diarrhea stool thus far which showed Cryptosporidium. Patient denies nausea and has not vomited in a few days. With work-up in the emergency room laboratory data revealed white blood cell count of 11,600 with a hemoglobin of 15.7 and hematocrit of 44 with improvement this morning to white blood cell count of 10,900. Blood chemistries revealed a low sodium of 134; potassium was 3.8, BUN 114 and creatinine 19 with improvement this morning with BUN of 107 and creatinine of 2.3. Liver function studies were all normal. Chest x-ray showed no acute changes. Patient was admitted for further evaluation and treatment with IV fluids. <Melissa Rodriguez - 12/12/19 14:03> Hospital Course Hospital Course: The patient was started on IV fluids as well as nitazoxanide for his Cryptosporidium diarrhea. His renal function did improve with IV fluids. His abdominal pain improved and his diarrhea slowed. His white blood cell count normalized. He was able to tolerate a diet. The patient initially only received nitazoxanide for 2 days and the pharmacy was instructed to obtain nitazoxanide for the patient as he still needed 3 days of treatment. He did receive his 3rd day of nitazoxanide and was stable to be discharged home. <Melissa Rodriguez - 12/12/19 14:03> Objective Vital signs: Temp Pulse Resp BP Pulse Ox 98.0 F 85 20 138/82 97 12/09/19 07:23 12/09/19 08:00 12/09/19 08:00 12/09/19 07:23 12/09/19 08:00 <MikeDavid Edwin - 12/13/19 08:46> Temp Pulse Resp BP Pulse Ox 98.0 F 85 20 138/82 97 12/09/19 07:23 12/09/19 08:00 12/09/19 08:00 12/09/19 07:23 12/09/19 08:00 <Melissa Rodriguez - 12/12/19 14:03> Narrative: - Constitutional no acute distress Comments: Sitting on bedside trying to eat breakfast - *Routine HEENT Exam Head: Present: normocephalic, atraumatic Eye: Present: PERRL. Absent: conjunctival icterus, scleral injection ENT: Present: other (Dry tongue) - *Routine Neck Exam Present: supple, full ROM. Absent: carotid bruit, lymphadenopathy, tenderness - *Routine Respiratory Exam Present: other Comments: Clear to auscultation bilaterally A&P - *Routine Cardiovascular Exam Present: RRR - *Routine Abdominal Exam Present: soft, normoactive bowel sounds. Absent: tenderness, distended, guarding - *Routine Extremities Exam Absent: jessica
== END 2019-12-09 12:55 | disposition home or self-care (01) | DRG 372 ==
LOC: ER 22:22 → 2ND 12-06 00:23
PROVIDERS: Admitting Provider Family Medicine; Emergency Provider Emergency Medicine; PCP Family Medicine; Visit Provider Family Medicine
DX: A07.2 Cryptosporidiosis (principal); N17.9 Acute kidney failure, unspecified; I10 Essential (primary) hypertension; E78.5 Hyperlipidemia, unspecified; Z95.1 Presence of aortocoronary bypass graft; I25.10 Atherosclerotic heart disease of native coronary artery without angina pectoris
CPT/HCPCS: 36415; 71046; 80048; 80053; 82962; 83735; 84100; 84484; 85025; 86328; 87506; 90732; 93005; 96365; 99284

== ENCOUNTER 2021-04-06 15:00 | Emergency (ER) | payer MEDICARE, SELFPAY ==
[2021-04-06] VITALS (10 sets, daily range): BP systolic 185–203; BP diastolic 70–112; PULSE 55–78; RESP 15–22; TEMP 36.5–36.9; O2SAT 96–99; BMI 26.6
--- NOTE | 2021-04-06 15:10 | CT_ITS ---
PROCEDURE INFORMATION: Exam: CT Head Without Contrast Exam date and time: 04/06/2021 3:10 PM Age: 70 years old Clinical indication: Speech disturbance and weakness, extremity; Bilateral; Slurred speech; Additional info: Stroke protocol TECHNIQUE: Imaging protocol: Computed tomography of the head without contrast. Radiation optimization: All CT scans at this facility use at least one of these dose optimization techniques: automated exposure control; mA and/or kV adjustment per patient size (includes targeted exams where dose is matched to clinical indication); or iterative reconstruction. Other technique: STROKE PROTOCOL was implemented. COMPARISON: No relevant prior studies available. FINDINGS: Brain: Encephalomalacia changes noted within the left cerebellum. Area of old lacunar infarction noted within the right internal capsule. No hemorrhage, mass effect or midline shift. Age-related atrophy and chronic white matter ischemic changes, with no evidence of an acute intracranial abnormality. Cerebral ventricles: No ventriculomegaly. Paranasal sinuses: Right maxillary sinusitis. Remaining sinuses are clear as imaged. Mastoid air cells: Visualized mastoid air cells are well aerated. Vasculature: The vasculature demonstrates diffuse mild atherosclerotic calcification. Bones/joints: No acute fracture. Soft tissues: No acute changes IMPRESSION: 1. No hemorrhage, mass effect or midline shift. 2. Age-related atrophy and chronic white matter ischemic changes, with no evidence of an acute intracranial abnormality. 3. Right maxillary sinusitis. ASSESSMENT: ASPECTS ([place] Stroke Program Early CT Score) is 10.
--- NOTE | 2021-04-06 15:13 | ECG_ITS ---
APPROVED REPORT Exam: Resting ECG HR:58 bpm ECG Measurements Heart Rate 58 AXES CO 150 P 60 QRSd 124 QRS -74 QT 438 T 41 QTc 429 Conclusion Sinus bradycardia Left anterior fascicular block Left ventricular hypertrophy with QRS widening ST abnormality, possible digitalis effect Abnormal ECG Electronically signed by : Nabil Gibbs MD 04/07/2021 21:41:15
--- NOTE | 2021-04-06 15:35 | HMH.EDGENADL ---
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 The time I documented below is in addition to time spent performing reported procedures but includes the following listed in this critical care notation. Total Critical Care Time: 40 Vital system(s) involved:: Central Nervous System My critical care processes included: Assessment & monitoring of V/S, Initial and Re-exams, Data Review/Interpretation, Coordinating Care, Medication Orders and management, Documentation Medical Decision Making - Rogelio Inquiry Pt receiving controlled substance: No Vital Signs: 04/06/21 15:05 04/06/21 16:45 04/06/21 17:00 Temperature 98.4 F Temperature Source Oral Pulse Rate 55 L 59 L Pulse Rate [Left Radial] 65 Respiratory Rate 16 21 21 Blood Pressure 189/102 H 188/99 H Blood Pressure [Left Arm] 203/112 H Blood Pressure Mean [Left Arm] 142 Blood Pressure Source [Left Arm] Automatic Cuff Blood Pressure Position [Left Arm] Sitting 02 Sat by Pulse Oximetry 99 98 98 Oxygen Delivery Method Room Air 04/06/21 17:15 04/06/21 17:30 04/06/21 17:45 Temperature Temperature Source Pulse Rate 60 62 64 Pulse Rate [Left Radial] Respiratory Rate 22 21 15 Blood Pressure 191/100 H 193/105 H 187/99 H Blood Pressure [Left Arm] Blood Pressure Mean [Left Arm] Blood Pressure Source [Left Arm] Blood Pressure Position [Left Arm] 02 Sat by Pulse Oximetry 98 99 99 Oxygen Delivery Method 04/06/21 18:01 04/06/21 18:16 Temperature Temperature Source Pulse Rate 67 60 Pulse Rate [Left Radial] Respiratory Rate 21 19 Blood Pressure 198/100 H 197/97 H Blood Pressure [Left Arm] Blood Pressure Mean [Left Arm] Blood Pressure Source [Left Arm] Blood Pressure Position [Left Arm] 02 Sat by Pulse Oximetry 98 96 Oxygen Delivery Method - Lab Data Lab Results 04/06/21 15:27: WBC 7.2, RBC 4.76, Hgb 14.9, Hct 46.3, MCV 97.4 H, MCH 31.3 H, MCHC 32.1, RDW 13.3, Plt Count 178, MPV 9.2, Neut % (Auto) 69.6, Lymph % (Auto) 21.0, [place] % (Auto) 6.3, Eos % (Auto) 1.5, Baso % (Auto) 1.6, Neut # (Auto) 5.0, Lymph # (Auto) 1.5, [place] # (Auto) 0.5, Eos # (Auto) 0.1, Baso # (Auto) 0.1 04/06/21 15:27: Sodium 139, Potassium 4.1, Chloride 106, Carbon Dioxide 28, Anion Gap 9.1, BUN 16, Creatinine 1.00, Estimated Creat Clear 72, Estimated GFR 74, Est GFR ( Amer) 89, Glucose 105 H, Calcium 9.2, Total Bilirubin 0.9, AST 34, ALT 15, Alkaline Phosphatase 60, Total Protein 6.7, Albumin 4.0, Globulin 2.7, Albumin/Globulin Ratio 1.5 04/06/21 15:47: POC Glucose 93 Result diagrams: 04/06/21 15:27 04/06/21 15:27 Orders (Tests/Meds): ED MEDICATIONS Discontinued Medications Generic Name Dose Route Start Last Admin Trade Name Taylor PRN Reason Stop Dose Admin Iopamidol 100 ml 04/06/21 19:18 04/06/21 19:19 Iopamidol-370 (76%);100ml Bottle IV 04/06/21 19:19 100 ml ONCE ONE Administration Sodium Chloride 40 ml 04/06/21 19:18 04/06/21 19:19 0.9 % Sodium Chloride 50 Ml Vial IV 04/06/21 19:19 40 ml ONCE ONE Administration Sodium Chloride 10 ml 04/06/21 19:18
[2021-04-06 15:55] LABS: POC Glucose,Bedside 93 (70-110)
[2021-04-06 16:10] LABS: Basophils # 0.1 K/mm3 (0-0.2); Basophils % 1.6 % (0.1-2.0); Chloride 106 mmol/L (98-107); Eosinophils # 0.1 K/mm3 (0.0-0.4); Eosinophils % 1.5 % (0.1-12.0); Hematocrit 46.3 % (42.0-52.0); Hemoglobin 14.9 g/dL (14.1-18.0); Lymphocytes # 1.5 K/mm3 (0.7-4.5); Mean Corpuscular HGB Conc 32.1 g/dL (31.8-35.4); Mean Corpuscular Hemoglobin 31.3 pg (27.0-31.2); Mean Corpuscular Volume 97.4 fl (80-94); Mean Platelet Volume 9.2 fl (7.4-10.4); Monocytes # 0.5 K/mm3 (0.1-1.0); Monocytes % 6.3 % (1.7-9.3); Neutrophils % 69.6 % (37.0-80.0); Platelet Count 178 K/mm3 (142-424); Potassium 4.1 mmoL/L (3.5-5.1); Red Blood Count 4.76 M/mm3 (4.60-6.20); Red Cell Distribution Width 13.3 % (11.5-17.5); Sodium 139 mmol/L (136-145); White Blood Count 7.2 K/mm3 (4.8-10.8)
[2021-04-06 16:12] LABS: Alanine Aminotransferase 15 U/L (12-78); Aspartate Amino Transferase 34 U/L (17-59); Blood Urea Nitrogen 16 mg/dl (9-20); Creatinine Clearance Estimated 72 mL/min (50-200); Estimated Glomerular Filt Rate 74 ml/min (>60); GFR (African American) 89 ML/MIN (>60)
[2021-04-06 16:13] LABS: Albumin/Globulin Ratio 1.5 (1.1-1.8); Alkaline Phosphatase 60 U/L (38-126); Anion Gap 9.1 mEq/L (5-15); Bilirubin,Total 0.9 mg/dl (0.2-1.3); Calcium 9.2 mg/dl (8.4-10.2); Carbon Dioxide 28 mmol/L (22.0-30.0); Globulin 2.7 g/dL (1.3-3.2); Glucose 105 mg/dl (74-100); Total Protein,Serum 6.7 g/dl (6.3-8.2)
--- NOTE | 2021-04-06 18:49 | CT_ITS ---
PROCEDURE INFORMATION: Exam: CT Angiography Neck With Contrast Exam date and time: 04/06/2021 6:49 PM Age: 70 years old Clinical indication: Dizziness and giddiness and speech disturbance and other: Unsteady gait; Slurred speech; Prior surgery; Surgery date: 6+ months; Surgery type: Open heart surgery; Additional info: Stroke symptoms TECHNIQUE: Imaging protocol: Computed tomography angiography of the neck with contrast. 3D rendering (Not supervised by radiologist): MIP and/or 3D reconstructed images were created by the technologist. Radiation optimization: All CT scans at this facility use at least one of these dose optimization techniques: automated exposure control; mA and/or kV adjustment per patient size (includes targeted exams where dose is matched to clinical indication); or iterative reconstruction. Contrast material: ISOVUE 370; Contrast volume: 100 ml; Contrast route: INTRAVENOUS (IV); COMPARISON: CT HEAD/BRAIN WO CON 04/06/2021 3:12 PM FINDINGS: Right common carotid artery: Dense calcified plaque at the right carotid bulb. Stenosis mild by NASCET criteria, less than 50%. No dissection or occlusion. Right internal carotid artery: Mild stenosis of the extracranial segment by NASCET criteria, less than 50%, with dense plaques in the origin and proximal ICA. No dissection or occlusion. Right external carotid artery: No occlusion or stenosis of the origin. 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 Calcified plaques in the origin of the left CCA coronal series 4, image 70, stenosis mild by NASCET criteria, less than 50%. Mild plaque in the distal common carotid artery slightly proximal to the bulb series 3, image 203, stenosis less than 50%, mild by NASCET criteria. Tiny plaques at the bulb, stenosis less than 50% by NASCET criteria. No dissection or occlusion. Left internal carotid artery: Small calcified plaques in the origin and proximal left internal carotid artery, some stenoses are mild by NASCET criteria less than 50%. In the area of greatest plaque there is moderate stenosis by NASCET criteria 50-69%. Coronal series 4, image 71. No dissection or occlusion. Left external carotid artery: No occlusion . Mild stenosis, less than 50% by NASCET criteria, at the origin with circumferential soft plaque. Right vertebral artery: Diffusely small, likely developmentally hypoplastic right vertebral artery. No high-grade focal stenosis. No dissection or occlusion. Left vertebral artery: No stenosis. No dissection or occlusion in the neck. The left vertebral artery appears dominant and hyperenhancing compared with the right, within the neck. The artery is occluded in the head, please see the head CT report for intracranial findings. Soft tissues: There are no soft tissue masses or fluid collections. Bones/joints: No acute fracture. Cervical spine degenerative changes, multilevel degenerative disc disease, spondylosis. Spinal and foraminal stenoses. Lungs: Lung apices are unremarkable as visualized. IMPRESSION: 1. Suboptimal bolus timing, veins are better enhanced in the neck than the arteries. 2. On the right, mild stenosis of the carotid bulb and right internal carotid artery less than 50% by NASCET criteria. 3. On the left, mild stenosis of common carotid artery less than 50% by NASCET criteria, and moderate stenosis of the left internal carotid artery by NASCET criteria 50-69%. 4. Both vertebral arteries are patent in the neck with no focal high-grade stenosis, dis
--- NOTE | 2021-04-06 18:49 | CT_ITS ---
PROCEDURE INFORMATION: Exam: CT Angiography Head With Contrast, Arteriography Exam date and time: 04/06/2021 6:49 PM Age: 70 years old Clinical indication: Dizziness and giddiness and other: Unsteady gate, potential for fall when trying to ambulate; Prior surgery; Surgery date: 6+ months; Surgery type: Open heart; Patient HX: Unsteady gait, dizziness, slurred speech; Additional info: Stroke symptoms TECHNIQUE: Imaging protocol: Computed tomography angiography of the head with contrast. Exam focused on the arteries. 3D rendering (Not supervised by radiologist): MIP and/or 3D reconstructed images were created by the technologist. Radiation optimization: All CT scans at this facility use at least one of these dose optimization techniques: automated exposure control; mA and/or kV adjustment per patient size (includes targeted exams where dose is matched to clinical indication); or iterative reconstruction. Contrast material: ISOVUE 370; Contrast volume: 100 ml; Contrast route: INTRAVENOUS (IV); COMPARISON: CT HEAD/BRAIN WO CON 04/06/2021 3:12 PM FINDINGS: ANTERIOR CIRCULATION: Right internal carotid artery: Mild calcified atherosclerotic plaques. Mild stenosis by NASCET criteria less than 50%. Intracranial segment is patent with no high-grade stenosis. No aneurysm. Right middle cerebral artery: Unremarkable. No occlusion or significant stenosis. No aneurysm. Right anterior cerebral artery: Unremarkable. No occlusion or significant stenosis. No aneurysm. Left internal carotid artery: Mild calcified atherosclerotic plaques. Mild stenosis by NASCET criteria less than 50%. Intracranial segment is patent with no high-grade stenosis. No aneurysm. Left middle cerebral artery: Unremarkable. No occlusion or significant stenosis. No aneurysm. Left anterior cerebral artery: Unremarkable. No occlusion or significant stenosis. No aneurysm. POSTERIOR CIRCULATION: Right vertebral artery: The right vertebral artery appears mildly hypoplastic, diffusely smaller than left. Mild calcified plaque. No occlusion or high-grade stenosis. No aneurysm. Left vertebral artery: There is occlusion of the intracranial segment of the left vertebral artery. No enhancement. Calcified atherosclerotic plaque in the proximal intracranial segment of the left vertebral artery. Basilar artery: Small, enhancing basilar artery. No occlusion or focal high-grade stenosis. No aneurysm. Right posterior cerebral artery: Hypoplastic or hypoenhancing P1 segment. Right posterior circulation partially supplied via a large patent right posterior communicating artery. No occlusion or significant focal stenosis. No aneurysm. Left posterior cerebral artery: Hypoplastic or hypoenhancing P1 segment. Left posterior circulation partially supplied via patent left posterior communicating artery. No occlusion or significant focal stenosis. No aneurysm. Brain: No definite mass, mass effect, or midline shift. Cerebral atrophy. White matter disease. Cerebral ventricles: Within normal limits for age. Bones/joints: No acute skull fracture. No lytic lesions. Soft tissues: Unremarkable. Paranasal sinuses: Chronic right maxillary sinusitis with moderate lobulated mucosal thickening and some possible underlying mucous retention cysts or polyps. Mild bilateral ethmoid mucosal thickening. Hypoplastic right frontal sinus. Small left sphenoid sinus mucous retention cyst or polyp. No acute air-fluid levels, as visualized. IMPRESSION: 1. 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 A relatively hypoplastic right vertebral artery remains patent, with mild
--- NOTE | 2021-04-06 20:12 | PC.NURSE ---
paged [facility] for stroke team, dr ring.
--- NOTE | 2021-04-06 20:41 | PC.NURSE ---
Paging [facility] at this time
[2021-04-06 20:55] LABS: Activated Partial Thrombo Time 26.3 seconds (22.8-30.6); INR 0.99 (0.9-1.1); Prothrombin Time 11.2 seconds (10.1-12.5)
--- NOTE | 2021-04-06 21:02 | PC.NURSE ---
Spoke with [facility] for heparin gtt dosing. They recommend 900untis/hr IV. PTT checked Q6H
--- NOTE | 2021-04-06 21:08 | PC.NURSE ---
report called at 2100 to [facility]
== END 2021-04-06 21:19 | disposition short-term general hospital (02) ==
PROVIDERS: Emergency Provider Emergency Medicine; PCP Family Medicine
DX: I63.012 Cerebral infarction due to thrombosis of left vertebral artery (principal); I65.02 Occlusion and stenosis of left vertebral artery; I25.10 Atherosclerotic heart disease of native coronary artery without angina pectoris; I10 Essential (primary) hypertension; E78.5 Hyperlipidemia, unspecified; Z95.1 Presence of aortocoronary bypass graft; R29.701 NIHSS score 1
CPT/HCPCS: 70450; 70496; 70498; 80053; 82962; 85025; 85610; 85730; 93005; 99284; Q9967